=== PATIENT | male | born 1975 | race Hispanic/Latino ===

== ENCOUNTER 2019-12-14 11:50 | Inpatient (IN) | payer BC ==
[2019-12-14] VITALS (7 sets, daily range): BP systolic 106–133; BP diastolic 63–76
[~2019-12-14] VITALS: Ht 177.8 cm; Wt 80.5 kg
--- NOTE | 2019-12-14 12:00 | NUR ---
ORTHOSTATIC VS LYING HR 116 BP 126/63 SITTING HR 122 BP 136/72 LYING HR 127 BP 126/67 DR CLARKE NOTIFIED
--- NOTE | 2019-12-14 12:17 | Emergency Department Note ---
History of Present Illnes History of Present Illness Chief Complaint: syncope times 2 once 3 days ago and yesterday History of Present Illness This is a 44 year old male . Historian: Patient Arrival Mode: [employer] Architect Required: No Onset (how long ago): day(s) (3) Severity: moderate Onset quality: sudden Timing of current episode: intermittent Progression: worsening Chronicity: new Context: Reports recent illness (co black stools for the last 3 days) Relieving factors: none Exacerbating factors: none Treatments prior to arrival: NSAID (motrin daily) Risk factors: NSAID use Past Medical/Family History Physician Review I have reviewed the patient's past medical and family history. Any updates have been documented here. Past Medical History Recent Fever: No Clinical Suspicion of Infectio: No New/Unexplained Change in Ment: No Past Medical History: None Past Surgical History: None Social History Smoking Cessation: Never Smoker Alcohol Use: None Any Illegal Drug Use: No TB Exposure/Symptoms: No Physically hurt or threatened: No Other Any Pre-Existing Lines (PICC,: No Is patient up to date on immun: No Review of Systems Review of Systems Constitutional: Reports weakness EENTM: Reports no symptoms Cardiovascular: Reports no symptoms Respiratory: Reports no symptoms Gastrointestinal: Reports no symptoms Genitourinary: Reports no symptoms Musculoskeletal: Reports no symptoms Integumentary: Reports no symptoms Neurological: Reports no symptoms Psychological: Reports no symptoms Endocrine: Reports no symptoms Hematological/Lymphatic: Reports no symptoms Review of other systems: All other systems negative Physical Exam Physical Exam CONSTITUTIONAL Constitutional: Present well-developed, Present well-nourished, Present other (pale complection) HENT HENT: Present normocephalic, Present atraumatic EYES Eyes: Reports PERRL, Reports conjunctivae normal, Reports EOM normal, Reports lids normal NECK Neck: Present ROM normal, Present supple PULMONARY Pulmonary: Present effort normal, Present breath sounds normal CARDIOVASCULAR Cardiovascular: Present regular rhythm, Present heart sounds normal, Present intact distal pulses, Present tachycardia GASTROINTESTINAL Abdominal: Present soft, Present nontender, Present bowel sounds normal, Present other (rectal no masses but stool black and guaiac positive) GENITOURINARY Genitourinary: Present guaiac result (positive) SKIN Skin: Present warm, Present dry, Present pale MUSCULOSKELETAL Musculoskeletal: Present ROM normal, Present edema NEUROLOGICAL Neurological: Present alert, Present oriented x 3, Present DTRs normal, Present no gross motor or sensory deficits PSYCHOLOGICAL Psychological: Present mood/affect normal, Present behavior normal, Present thought content normal, Present judgement normal Results Laboratory Laboratory orthostatics positive Lab results reviewed: Yes Laboratory comments chem wnl except k 3.1 . pt wnl and ua leukocyte trace and s.g of greater than 1.030. CBC pending Diagnostics Tests Diagnostic test(s) reviewed: Yes Diagnostic comments EKG interpreted by me nsr rate 100 intervals and axis wnl no st twave changes Assessment & Plan Medical Decision Making MDM case discussed with DR Heber Mcdonough and told of delay in getting cbc, machine out at this time. Will transfer patient to [facility] now and Dr Amaya Mcdonough will be notified when the patient arrives . He will follow the cbc and conduct further baldwin as needed Reassessment Reassessment time: 12:52 Reassessment latest bp 110/57 hr of 92 . which has improved since arrival Assessment & Plan Final Impression: (1) Acute upper GI bleeding Depart Disposition: ADMITTED Medications in the ED Sodium Chloride 1,000 ml @ 1,000 mls/hr Q1H IV ; Start 12/14/19 at 12:15; Stop 01/13/20 at 12:14; Status HARJITV FERMÍN CLARKE MD Dec 14, 2019 12:16
[2019-12-14] MEDS: PANTOPRAZOL 40MG/SOD CHL 0.9% 50 ML IV SCH ×3 (12:40→21:59)
[2019-12-14] MEDS ORDERED: PANTOPRAZOL 40MG/SOD CHL 0.9% 50 ML IV ONE (12:41)
[2019-12-14] MEDS ORDERED: PANTOPRAZOLE INJ 80 MG in SODIUM CHLORIDE 0.9% 100 ML IV SCH (12:45)
[2019-12-14] MEDS ORDERED: SODIUM CHLORIDE 0.9% 1000ML 1,000 ML IV SCH (13:00)
--- NOTE | 2019-12-14 13:00 | NUR ---
[facility] NOTIFED OF TRANSFER TO RM 112. ETA 40 MINUTES
[2019-12-14 13:46] LABS: BASOPHILS % 0.6 % (0.0-1.0); EOSINOPHILS % 0.6 % (0.0-6.0); HEMATOCRIT 22.6 % (38.2-49.6); HEMOGLOBIN 7.5 g/dL (14.0-18.0); LYMPHOCYTES # (AUTO) 1.8 (1.0-3.2); LYMPHOCYTES % 25.4 % (18.0-39.1); MEAN CORPUSCULAR HEMOGLOBIN 30.4 pg (28-32); MEAN CORPUSCULAR HGB CONC 33.2 g/dL (31-35); MEAN CORPUSCULAR VOLUME 91.5 fL (81-99); MONOCYTES # (AUTO) 0.4 (0.2-0.8); MONOCYTES % 6.1 % (4.4-11.3); NEUTROPHILS # (AUTO) 4.6 (2.1-6.9); NEUTROPHILS % 66.4 % (38.7-80.0); PLATELET COUNT 212 x10e3/uL (140-360); RED BLOOD COUNT 2.47 x10e6/uL (4.3-5.7); RED CELL DISTRIBUTION WIDTH 13.4 % (11.7-14.4)
--- NOTE | 2019-12-14 14:05 | NUR ---
PROTONIX GTT STOPPED WHILE PT IS BEING TRANSPORTED TO [facility] RM112, VERBAL ORDER FROM DR CLARKE, READ BACK AND VERBALIZED.
--- NOTE | 2019-12-14 14:40 | NUR ---
RECEIVED TO RM AAOX3, PT IN STABLE CONDITION, VS STABLE , NO DISTRESS NOTED,UPDATED ON POC VOICED UNDERSTANDING, DENIES PAIN AT THIS TIME, PROTONIX DRIP @ 10CC/HR, IVF INFUSING @ 125CC/HR, TELE BOX 22 WITH CONTINUOUS PULSE OX PLACED, NO OTHER CO VOICED, CALL LIGHT IN REACH, INSTRUCTED PT ON BEDREST ORDERS AND TO CALL WITH HELP, WILL CONTINUE TO MONITOR
[2019-12-14] MEDS: SODIUM CHLORIDE 0.9% 1000ML 1,000 ML IV SCH ×2 (14:50→21:59)
[2019-12-14] MEDS ORDERED: SODIUM CHLORIDE 0.9% 250ML 250 ML IV ONE ×2 (15:15→19:30)
[2019-12-14 18:01] LABS: HEMATOCRIT 17.5 % (38.2-49.6)
--- NOTE | 2019-12-14 19:00 | NUR ---
RECEIVED PATIENT IN BEDSIDE SHIFT REPORT. PATIENT RESTING IN BED AT THIS TIME. NO PAIN REPORTED. NO S&S OF DISTRESS NOTED. BED LOCKED IN LOWEST POSITION, SIDE RAILS UPX2, CALL LIGHT IN REACH.
[2019-12-14 20:01] LABS: FERRITIN 13.33 ng/mL (21.81-274.66)
--- NOTE | 2019-12-14 22:20 | NUR ---
FIRST UNIT OF BLOOD VERIFIED AT BEDSIDE WITH SUE ALSTON.
--- NOTE | 2019-12-14 22:30 | NUR ---
FIRST UNIT OF BLOOD STARTED AT THIS TIME. THIS NURSE TO STAY IN ROOM WITH PATIENT FOR FIRST 15 MINUTES.
[2019-12-15] VITALS (16 sets, daily range): BP systolic 110–129; BP diastolic 61–78
--- NOTE | 2019-12-15 01:30 | NUR ---
FIRST UNIT OF BLOOD COMPLETED AT THIS TIME. NO S&S OF TRANSFUSION REACTION NOTED. ADDITIONAL UNIT TO TRANSFUSE.
[2019-12-15] MEDS ORDERED: SODIUM CHLORIDE 0.9% 250ML 250 ML ONE (01:48)
--- NOTE | 2019-12-15 01:50 | NUR ---
SECOND UNIT OF BLOOD VERIFIED AT BEDSIDE WITH SUE ALSTON.
--- NOTE | 2019-12-15 01:55 | NUR ---
SECOND UNIT OF BLOOD STARTED AT THIS TIME. THIS NURSE TO STAY IN ROOM UNTIL 0210 TO MONITOR PATIENT.
[2019-12-15] MEDS: PANTOPRAZOL 40MG/SOD CHL 0.9% 50 ML IV SCH ×4 (02:58→21:45)
--- NOTE | 2019-12-15 05:00 | NUR ---
SECOND UNIT OF BLOOD COMPLETED AT THIS TIME. NO S&S OF TRANSFUSION REACTION NOTED.
[2019-12-15] MEDS: SODIUM CHLORIDE 0.9% 1000ML 1,000 ML IV SCH ×3 (05:16→21:45)
--- NOTE | 2019-12-15 06:12 | NUR ---
SPOKE WITH LAB CONCERNING HH TIMING, SURGICAL SCRUB TECHNICIAN STATED SHE WOULD DRAW 4 HOURS POST TRANSFUSION COMPLETION, AND RETIME FUTURE HH DRAWS FOR Q6 FROM THAT TIME.
--- NOTE | 2019-12-15 07:15 | NUR ---
bedside shift report received pt in stable condition deneis pain at this time, updated on poc voiced understanding, ivf infusing to l ac 20g no ss of infiltration noted, r ac 20g sl no other co voiced call light in reach will continue to monitor
[2019-12-15] MEDS: CYANOCOBALAMIN INJ 1,000 MCG/ML VIAL IM SCH (08:15)
[2019-12-15] MEDS: IRON SUCROSE 100 MG in SODIUM CHLORIDE 0.9% 100 ML 100 ML IV SCH (09:00)
[2019-12-15 09:05] LABS: HEMATOCRIT 25.2 % (38.2-49.6); HEMOGLOBIN 8.5 g/dL (14.0-18.0)
--- NOTE | 2019-12-15 13:28 | History and Physical ---
REASON FOR ADMISSION: A 44-year-old gentleman came in with melena. HISTORY OF PRESENTING ILLNESS: Mr. Kevin Magallanes, who has been taking on a daily basis Motrin PM to sleep two of them every night, had started with gastrointestinal bleeding, which include two black stools, and the patient came in, very lethargic and was feeling weak. H and H were done. The patient was noted to have a GI bleed. The patient also was very pale and diaphoretic on arrival. PAST MEDICAL HISTORY: History of significant insomnia and migraine headaches. For insomnia, he takes Advil as mentioned above, and for migraines he takes Excedrin Migraine. PAST MEDICAL HISTORY: Otherwise is noncontributory. SOCIAL HISTORY: No EtOH, no IV drug abuse, and no history of smoking either. FAMILY HISTORY: Noncontributory. ALLERGIES: THE PATIENT HAS NO DOCUMENTED ALLERGIES. REVIEW OF SYSTEMS: Negative for chest pain. No shortness of breath. Positive for some tachycardia. Positive for some diaphoresis. No dysuria. No hematochezia. No hematemesis. Positive for black tarry stools. Positive for fatigue. Positive for generalized weakness too. No chest pain and no shortness of breath. PHYSICAL EXAMINATION: VITAL SIGNS: Temperature is 98.5, pulse of 86, respirations 16, blood pressure is 126/78, and pulse ox 99% on room air. HEENT: Normocephalic, atraumatic. The patient has some pallor present. CVS: S1, S2, normal. Regular rate and rhythm. ABDOMEN: Soft, nontender. EXTREMITIES: No clubbing, no cyanosis, no edema. The patient has a YARED hose. LABORATORY VALUES: Initial white count 6.92, hemoglobin of 7.5, and hematocrit of 22.6, dropped down to 6 and 17.5. Retic count was 6.6. Chemistries, iron 35, TIBC 375, transferrin 268, ferritin 33.8, vitamin . Coronavirus is still pending. ASSESSMENT AND PLAN: Blood loss anemia, possibly upper gastrointestinal and duodenal. Dr. Simon is on the case, will be scoping him. Additional diagnosis includes iron deficiency or microcytic anemia. Iron replacement will be undertaken. Continue with transfusion and further recommendation per clinical course. We will continue to monitor the patient. The patient is currently stable. I discussed the case with the patient and the patient is in agreement with endoscopy in continued care. MD ZHANG Godoy/MODL /[id number]
[2019-12-15] MEDS ORDERED: LIDOCAINE HCL 2% LOCAL INJ 5 ML SDV VIAL INJ ONE (14:27)
[2019-12-15] MEDS ORDERED: PROPOFOL IV EMULSION 10 MG/ML 20 ML VIAL ONE (14:27)
[2019-12-15 16:06] LABS: HEMATOCRIT 27.1 % (38.2-49.6); HEMOGLOBIN 9.2 g/dL (14.0-18.0)
--- NOTE | 2019-12-15 17:55 | Operative Report ---
DATE OF PROCEDURE: 12/15/2019 SURGEON: Alfred Simon MD PROCEDURE: EGD with biopsies. INDICATIONS FOR EGD: Anemia, melena. MEDICATIONS: The patient was done under MAC, please see anesthesiologist's note. PROCEDURE IN DETAIL: With the patient in left lateral decubitus position, a flexible fiberoptic Olympus gastroscope was introduced into the esophagus under direct visualization without any difficulty. The esophagus appeared to be within normal limits. The scope was then advanced with ease into the stomach, mucosa overlying the antrum and the body revealed some patchy intense erythema and moderate edema, and biopsies were obtained, sent to stain for H. pylori. Pylorus was of normal contour and shape, it was intubated with ease and the scope was advanced all the way to the second portion of the duodenum. Mucosa overlying the proximal second portion appeared to be within normal limits. A minute ulcer was noted in the distal bulb without active bleeding or stigmata of recent hemorrhage. The mucosa overlying the duodenal bulb also revealed some patchy intense erythema. The scope was then withdrawn back into the stomach and was retroflexed, mucosa overlying the fundus and cardia appeared to be within normal limits. The scope was then straightened out, it was subsequently withdrawn. The patient tolerated the procedure well. IMPRESSION: 1. Normal esophagus. 2. Gastritis, biopsied, biopsies sent to stain for H. pylori. 3. Duodenal bulb ulcer, minute without active bleeding or stigmata of recent hemorrhage. 4. Duodenitis. PLAN: 1. Follow up histology. 2. Findings do not necessarily explain the degree of the patient's blood loss. We will obtain a GI bleed scan. If unremarkable, then a colonoscopy would be in order. Alfred Simon MD [facility] [place] /[id number] cc: Kishore Mcdonough MD
--- NOTE | 2019-12-15 18:09 | Operative Report ---
DATE OF PROCEDURE: 12/15/2019 SURGEON: Alfred Simon MD INDICATIONS FOR PROCEDURE: Anemia and melena. MEDICATIONS: The patient was done under MAC, please see anesthesiologist's note. PROCEDURE IN DETAIL: With the patient in left lateral decubitus position, a flexible fiberoptic Olympus gastroscope was introduced into the esophagus under direct visualization without any difficulty. A small diverticulum was noted in the distal 3rd of the esophagus. Other than that, the esophagus appeared to be within normal limits. The scope was then advanced with ease into the stomach. Mucosa overlying the antrum and the body revealed some patchy intense erythema and moderate edema, and biopsies were obtained, and sent to stain for H. pylori. Pylorus was of normal contour and shape, it was intubated with ease and the scope was advanced all the way to the second portion of the duodenum. The scope was then withdrawn slowly and mucosa overlying the proximal second portion appeared to be within normal limits. A minute ulcer was noted in the distal duodenal bulb without active bleeding or stigmata of recent hemorrhage. Also, there were some patchy intense erythema noted in the duodenal bulb. The scope was then withdrawn back into the stomach and retroflexed, and mucosa overlying the fundus and cardia appeared to be within normal limits. The scope was then straightened out, it was subsequently withdrawn. The patient tolerated the procedure well. IMPRESSION: 1. Small diverticulum, distal 3rd of esophagus. 2. Gastritis, biopsied, biopsies sent to stain for H. pylori. 3. Duodenal bulb ulcer, minute without active bleeding or stigmata of recent hemorrhage. 4. Duodenitis. PLAN: 1. Follow up histology. 2. Findings do not necessarily explain the degree of the patient's blood loss. We will proceed with a GI bleed scan and if negative, then a colonoscopy would be in order. Alfred Simon MD [facility] [place] /[id number] cc: Kishore Mcdonough MD
--- NOTE | 2019-12-15 19:40 | NUR ---
PATIENT LEFT UNIT TO GET GI BLEED SCAN VIA WHEELCHAIR.
--- NOTE | 2019-12-15 21:15 | NUR ---
PATIENT IS BACK TO UNIT
--- NOTE | 2019-12-15 21:20 | NUR ---
PATIENT RESTING IN BED AT THIS TIME. NO PAIN NOTED OR REPORTED. NO S&S OF DISTRESS NOTED. TELE MONITOR IS ON. CALL LIGHT WITHIN REACH. INSTRUCT TO CALL FOR ASSISTANCE. BED LOCKED IN LOWEST POSITION, SIDE RAILS UPX2, CALL LIGHT IN REACH.
--- NOTE | 2019-12-15 21:38 | Diagnostic Imaging Report ---
Tagged-RBC GI Bleed Study Clinical information: 44-year-old male with black stools, weakness and feeling faint x 4 days. Discussion: The patient's own red blood cells were labeled with 30 mCi of technetium-99m pertechnetate using the in vitro method (UltraTag). Dynamic images of the abdomen were obtained through 60 minutes. Distribution of tracer activity appears physiologic throughout the abdomen. No abnormal accumulation of tracer is seen within the gastrointestinal lumen. Impression: No scan evidence of active gastrointestinal bleeding at this time. Signed by: Dr. Sisi Coronado M.D. on 12/15/2019 9:35 PM
[2019-12-15] MEDS ORDERED: BISACODYL 5 MG TAB EC PO ONE (23:15)
[2019-12-15 23:42] LABS: HEMATOCRIT 27.3 % (38.2-49.6)
[2019-12-16] VITALS (8 sets, daily range): BP systolic 113–138; BP diastolic 71–80
[2019-12-16 00:22] LABS: ANION GAP 11.4 mmol/L (8-16); BLOOD UREA NITROGEN 6 mg/dL (7-26); BUN/CREATININE RATIO 8 (6-25); CALCIUM 8.1 mg/dL (8.4-10.2); CARBON DIOXIDE 23 mmol/L (22-29); CHLORIDE 110 mmol/L (98-107); CREATININE, SERUM 0.75 mg/dL (0.72-1.25); EST GLOMERULAR FILTRATION RATE > 60 ML/MIN (60-); GLUCOSE 97 mg/dL (74-118); POTASSIUM 3.4 mmol/L (3.5-5.1); SODIUM 141 mmol/L (136-145)
[2019-12-16] MEDS ORDERED: BISACODYL 5 MG TAB EC PO ONE (01:15)
[2019-12-16] MEDS: PANTOPRAZOL 40MG/SOD CHL 0.9% 50 ML IV SCH ×4 (01:56→18:48)
[2019-12-16] MEDS: SODIUM CHLORIDE 0.9% 1000ML 1,000 ML IV SCH ×4 (02:26→14:33)
[2019-12-16] MEDS ORDERED: CITRATE OF MAGNESIA 300ML BOTTLE PO ONE ×2 (05:00→11:00)
[2019-12-16 06:09] LABS: BASOPHILS # (AUTO) 0.1 (0.0-0.1); BASOPHILS % 0.6 % (0.0-1.0); EOSINOPHILS # (AUTO) 0.1 (0.0-0.4); EOSINOPHILS % 0.6 % (0.0-6.0); HEMATOCRIT 25.7 % (38.2-49.6); LYMPHOCYTES # (AUTO) 1.6 (1.0-3.2); LYMPHOCYTES % 20.6 % (18.0-39.1); MEAN CORPUSCULAR VOLUME 94.1 fL (81-99); MONOCYTES # (AUTO) 0.8 (0.2-0.8); MONOCYTES % 9.6 % (4.4-11.3); NEUTROPHILS # (AUTO) 5.3 (2.1-6.9); PLATELET COUNT 158 x10e3/uL (140-360); RED BLOOD COUNT 2.73 x10e6/uL (4.3-5.7); RED CELL DISTRIBUTION WIDTH 16.4 % (11.7-14.4)
[2019-12-16] MEDS ORDERED: ONDANSETRON HCL INJ 2MG/ML 2ML 2 MG/ML VIAL IV PRN (06:45)
--- NOTE | 2019-12-16 07:23 | NUR ---
ASSUMED CARE. AAOX3. ACYANOTIC. CURRENTLY IN RESTROOM. NO DISTRESS NOTED. CALL LIGHT IN REACH. BED LOW AND LOCKED.
--- NOTE | 2019-12-16 07:47 | Progress Note ---
DATE: SUBJECTIVE: The patient is a 44-year-old male with a history of GI bleed. The patient underwent endoscopy yesterday, showed a minute duodenal ulcer and stigmata of bleeding, but not enough for the blood loss he had. Bleeding scan was done yesterday, which was normal. Currently, the patient had one episode of nausea and clear vomitus. OBJECTIVE: VITAL SIGNS: Temperature is 98.0, pulse of 93, respirations of 18, blood pressure is 131/75, pulse oximetry 100% on room air. HEENT: Normocephalic and atraumatic. Pupils are reactive. CVS: S1 and S2 normal. Regular rate and rhythm. ABDOMEN: Soft, nontender, nondistended. EXTREMITIES: No clubbing, no cyanosis, no edema. LABORATORY VALUES: Today's white count is 7.78, hemoglobin of 9.0, hematocrit 25.7. He had received 2 units of PRBCs. Sodium 141, potassium 3.4, creatinine 0.75, calcium is 8.1. Serology, coronavirus is still pending. ASSESSMENT: Mr. Kevin Magallanes with: 1. Acute gastrointestinal bleed, present on admission. 2. Duodenal ulcer. Continue with Protonix IV drip. 3. Blood-loss anemia. The patient has had 2 units of PRBCs. Continue to monitor the patient. Further recommendation per clinical course. We will monitor the patient and possible colonoscopy tomorrow with Dr. Simon. MD LYRIC GodoyJ/MODL /[id number]
[2019-12-16] MEDS: CYANOCOBALAMIN INJ 1,000 MCG/ML VIAL IM SCH (09:43)
[2019-12-16] MEDS: IRON SUCROSE 100 MG in SODIUM CHLORIDE 0.9% 100 ML 100 ML IV SCH (09:50)
[2019-12-16 11:56] LABS: HEMATOCRIT 27.1 % (38.2-49.6); HEMOGLOBIN 9.2 g/dL (14.0-18.0)
--- NOTE | 2019-12-16 16:43 | NUR ---
AAOX3. ACYANOTIC. RESTING IN BED. PREPARING FOR TRANSPORT VIA BED TO OR FOR SCHEDULED COLONOSCOPY. NO DISTRESS NOTED.
[2019-12-16] MEDS ORDERED: PROPOFOL IV EMULSION 50 ML IV ONE (17:09)
[2019-12-16] MEDS ORDERED: FENTANYL CITRATE/PF 100MCG/2 ML INJ ONE (17:33)
[2019-12-16] MEDS ORDERED: MIDAZOLAM HCL 2 MG/2 ML VIAL ONE (17:33)
--- NOTE | 2019-12-16 19:10 | NUR ---
Received pt in bed asleep, easily awaken. No c/o at this time. IVF infusing with no diff. Bed in low and locked position, call wall and personal items within reach. Will cont to mon.
[2019-12-16 19:19] LABS: HEMOGLOBIN 8.6 g/dL (14.0-18.0)
--- NOTE | 2019-12-16 19:35 | Operative Report ---
DATE OF PROCEDURE: 12/16/2019 SURGEON: Alfred Simon MD PROCEDURE: Colonoscopy with polypectomy. INDICATIONS FOR COLONOSCOPY: Anemia. MEDICATIONS: The patient was done under MAC, please see anesthesiologist's note. PROCEDURE IN DETAIL: With the patient in left lateral decubitus position, a flexible fiberoptic Olympus colonoscope was inserted into the rectum with ease and advanced all the way to the cecum. Diverticular disease was noted throughout the colon. The scope was then withdrawn slowly and one polyp was cold snared from the ascending colon. The transverse, descending, and sigmoid other than for diverticular disease appeared to be within normal limits. The scope was then retroflexed into the distal rectum and small internal hemorrhoids were noted, none of which was actively bleeding. The scope was then straightened out, it was subsequently withdrawn. The patient tolerated the procedure well. IMPRESSION: 1. Pandiverticulosis. 2. Ascending colon polyp, approximately 5 mm in size, removed per cold snare polypectomy. 3. Internal hemorrhoids, none actively bleeding. PLAN: 1. Follow up histology. 2. Initiate high-fiber, low-fat diet. 3. Initiate high-fiber supplement. 4. Findings do not explain patient's anemia, might benefit on an outpatient basis from a capsule endoscopy. Alfred Simon MD [facility] [place]/MODL /[id number] cc: Kishore Mcdonough MD
[2019-12-17] VITALS: BP 112/66
[2019-12-17 01:33] LABS: HEMATOCRIT 24.8 % (38.2-49.6); HEMOGLOBIN 8.4 g/dL (14.0-18.0)
[2019-12-17 04:00] VITALS: BP 110/69
[2019-12-17] MEDS: PANTOPRAZOL 40MG/SOD CHL 0.9% 50 ML IV SCH ×4 (05:57→11:45)
[2019-12-17] MEDS: SODIUM CHLORIDE 0.9% 1000ML 1,000 ML IV SCH (05:57)
[2019-12-17 07:56] LABS: HEMATOCRIT 26.2 % (38.2-49.6); HEMOGLOBIN 8.7 g/dL (14.0-18.0)
[2019-12-17 08:00] VITALS: BP 115/67
--- NOTE | 2019-12-17 09:17 | Progress Note ---
DATE: SUBJECTIVE: A 44-year-old male who came in with acute gastrointestinal bleed, continues to have drop in hemoglobin and hematocrit. Colonoscopy and endoscopy were done. No active bleeding or stigmata found in either one. The patient's hemoglobin has dropped today. OBJECTIVE: VITAL SIGNS: Temperature is 96.9, pulse 76, respirations of 20, blood pressure is 110/69, pulse 100% on room air. HEENT: Normocephalic, atraumatic. Pupils reactive. CVS: S1 and S2 normal. Regular rate and rhythm. ABDOMEN: Soft, nontender, nondistended. EXTREMITIES: No clubbing, no cyanosis, no edema. LABORATORY VALUES: Hemoglobin 9.2 yesterday at 11:53 a.m., at 1955 hours 8.6 and 1 o'clock in the morning was 8.4, MCV 94.1, RDW 16.4. Total of 2 units have been given to the patient and GI bleed scan was normal. ASSESSMENT: Mr. Kevin Magallanes with: 1. Acute gastrointestinal bleed present on admission. 2. Duodenal ulcer with no stigmata of bleeding. 3. Colonoscopy with polyps. 4. Blood loss anemia. The patient has 2 units of PRBC. PLAN: Continue to monitor. Decrease IV fluids to 50 mL an hour. The patient is on a clear liquid diet. Will advance to soft mechanical diet. Check CBC tomorrow for stability. Plan discharge depending on GI consult. Further recommendation per clinical course. MD ZHANG Godoy/HIEU /[id number]
[2019-12-17] MEDS: CYANOCOBALAMIN INJ 1,000 MCG/ML VIAL IM SCH (09:23)
[2019-12-17] MEDS: IRON SUCROSE 100 MG in SODIUM CHLORIDE 0.9% 100 ML 100 ML IV SCH (09:23)
[2019-12-17 11:25] VITALS: BP 114/70
[2019-12-17 11:26] VITALS: BP 134/66
[2019-12-17 12:18] LABS: HEMOGLOBIN 8.8 g/dL (14.0-18.0)
[2019-12-17] MEDS ORDERED: POTASSIUM CHLORIDE 10MEQ EA PO ONE (16:00)
[2019-12-17 16:15] VITALS: BP 121/70
== END 2019-12-17 18:02 | disposition home or self-care (01) | DRG 378 ==
LOC: FSED 12:30 → ERHOLD 12:45 → MED/SURG 14:35
PROVIDERS: ADMIT Family Medicine; ATTEND Family Medicine
PROC: 0DBK8ZZ Excision of Ascending Colon, Via Natural or Artificial Opening Endoscopic (ICD-10-PCS; principal; 2019-12-14)
PROC: 30233N1 Transfusion of Nonautologous Red Blood Cells into Peripheral Vein, Percutaneous Approach (ICD-10-PCS; 2019-12-14)
PROC: 0DB78ZX Excision of Stomach, Pylorus, Via Natural or Artificial Opening Endoscopic, Diagnostic (ICD-10-PCS; 2019-12-15)
DX: K26.4 Chronic or unspecified duodenal ulcer with hemorrhage (principal); D62 Acute posthemorrhagic anemia; Z11.59 Encounter for screening for other viral diseases; G47.00 Insomnia, unspecified; G43.909 Migraine, unspecified, not intractable, without status migrainosus; D50.9 Iron deficiency anemia, unspecified; K57.90 Diverticulosis of intestine, part unspecified, without perforation or abscess without bleeding; K63.5 Polyp of colon; K26.9 Duodenal ulcer, unspecified as acute or chronic, without hemorrhage or perforation; K29.70 Gastritis, unspecified, without bleeding; K29.80 Duodenitis without bleeding
CPT/HCPCS: 36415; 43239; 45378; 78278; 80048; 80076; 81003; 82607; 82728; 82746; 83540; 84466; 85014; 85018; 85025; 85045; 85610; 86850; 86900; 86920; 88305; 88312; 93005; 99284; A9512; J1756; J2001; J2250; J3010; J3420; J7030; J7050; P9016; U0002